=== PATIENT | male | born 1960 | race Caucasian/White ===

== ENCOUNTER 2017-11-09 16:09 | Inpatient (IN) | payer OTHER ==
[~2017-11-09] VITALS: Ht 188 cm; Wt 96.3 kg
[~2017-11-09 16:09] MED LIST: NORCO 325 MG-51 TAB PO
--- NOTE | 2017-11-09 16:45 | ED CARDIAC/CP/PALPITATIONS ---
History of Present Illness General Chief Complaint: Chest Pain Stated Complaint: CHEST PAIN,NUMBNESS IN ARM Source: patient Exam Limitations: no limitations Vital Signs & Intake/Output Vital Signs & Intake/Output Vital Signs Date Time Temp Pulse Resp B/P B/P Pulse O2 O2 Flow FiO2 Mean Ox Delivery Rate 11/09 1646 105 18 165/88 96 Room Air 11/09 1621 98.0 103 15 124/84 95 Room Air Room Air Allergies Coded Allergies: No Known Allergies (11/09/17) Reconcile Medications Acetaminophen/Hydrocodone Bi ([place] 325 MG-5 MG) 1 TAB TAB 1 TAB PO Q6HR PRN PAIN Triage Note: PT TO ED FOR C/C OF CHEST PRESSURE FOR THE LAST WEEK WITH L SIDED ARM NUMBNESS/TINGLING. SYMPTOMS WERE INTERMITTENT AND FOR THE LAST TWO DAYS BECAME CONSTANT. NOTHING MAKES PAIN BETTER OR WORSE. SOME DYSPNEA ON EXERTION AND LIGHTHEADEDNESS. 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 NO ACUTE DISTRESS OR DIAPHORESIS NOTED. Triage Nurses Notes Reviewed? yes Onset: Abrupt Duration: day(s): (1-2), changing over time, continues in ED Timing: single episode today Quality/Severity: moderate, pressure Location: substernal Radiation: arms (left arm ) Activities at Onset: activity Prior Chest Pain/Card Workup: no prior chest pain, no prior cardiac workup Modifying Factors: Improves With: rest. Worsens With: exercise. Nitro Today/Relief: 0.4 mg x 1, provided by ED, mild relief Aspirin Today: 325 mg x 1, provided at home Associated Symptoms: shortness of breath HPI: 57-year-old male past medical history of hypertension presents for evaluation of chest pain shortness of breath. Patient states over the past several days he has been having exertional chest pain.. Patient states that today he was on his yard moving heavy branches when he suddenly got the pain worse and became constant. The pain is located in the left side of his chest described as pressure radiates in the left arm. The pain improves with rest does not go away completely. He reports associated shortness of breath no nausea vomiting once or chills. No recent surgeries or recent trauma. He does report significant family history of heart disease in his older brother and younger brother. 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 Patient states that he took [address] (Carlos Manuel Roberson) Past History Travel History Traveled to [place] past 21 day No Medical History Any Pertinent Medical History? 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 No (Carlos Manuel Roberson) Review of Systems Review of Systems Constitutional: Reports: no symptoms. EENTM: Reports: no symptoms. Respiratory: Reports: see HPI, short of breath. Cardiovascular: Reports: see HPI, chest pain. GI: Reports: no symptoms. Genitourinary: Reports: no symptoms. Musculoskeletal: Reports: no symptoms. Skin: Reports: no symptoms. Neurological/Psychological: Reports: no symptoms. Hematologic/Endocrine: Reports: no symptoms. Immunologic/Allergic: Reports: no symptoms. All Other Systems: Reviewed and Negative (Carlos Manuel Roberson) Physical Exam Physical Exam General Appearance: well developed/nourished, no apparent distress, alert, awake Head: atraumatic, normal appearance Eyes: Bilateral: normal appearance, PERRL, EOMI. Ears, Nose, Throat: normal pharynx, normal ENT inspection, hearing grossly normal Neck: normal inspection, supple, full range of motion, no JVD Respiratory: normal breath sounds, chest non-tender, no respiratory distress, lungs clear Cardiovascular: normal peripheral pulses, tachycardia (rate 106) Peripheral Pulses: 2+ radial (R), 2+ radial (L) Gastrointestinal: soft, non-tender Back: normal inspection, normal range of motion, no vertebral tenderness Extremities: normal inspection, normal capillary refill, normal range of motion, no edema Neurologic/Psych: no motor/sensory deficits, awake, alert, oriented x 3, normal gait Skin: intact, normal color, warm/dry Lymphatic: no anterior cervical nida Core Measures ACS in differential dx? Yes CVA/TIA Diagnosis No Sepsis Present: No Sepsis Focused Exam Completed? No (Carlos Manuel Roberson) Progress Differential Diagnosis: AMI, aortic dissection, atrial fibrillation, costochondritis, musculoskeletal pain, myocarditis, pancreatitis, pericarditis, pneumonia, pneumothorax, pulmonary embolism, PUD/GERD, PVCs/PACs, rib fracture, unstable angina Plan of Care: Orders Procedure Date/time Status Patient Data 11/09 181 Active Admit to inpatient 11/09 181 Active Add-on Test (ER Only) 11/09 1739 Active Add-on Test (ER Only) 11/09 1639 Active TSH REFLEX 11/09 1633 Complete PARTIAL THROMBOPLASTIN TIME 11/09 1633 Complete PROTHROMBIN TIME 11/09 1633 Complete MAGNESIUM 11/09 1633 Complete B-TYPE NATRIURETIC PEP (BNP) 11/09 1633 Complete URINE DRUG SCREEN FOR ER ONLY 11/09 1624 Active URINALYSIS 11/09 1624 Active D-DIMER 11/09 1623 Complete TROPONIN LEVEL 11/09 1620 Complete COMPREHENSIVE METABOLIC PANEL 11/09 1620 Complete CBC WITHOUT DIFFERENTIAL 11/09 1620 Complete EKG 11/09 1611 Active Current Medications Sig/Scarlett Start time Last Medication Dose Stop Time Status Admin Clopidogrel Bisulfate 600 MG ONCE ONE 11/09 1815 AC (Plavix) 11/09 181 Nitroglycerin 1 GM Q6 11/09 1806 UNVr (Nitro-Bid) Heparin Sodium 25,000 UNIT Q24H 11/09 174 UNVr (Porcine) (Heparin) Sodium Chloride 500 ML Metoprolol Tartrate 5 MG ONCE ONE 11/09 174 CANr (Lopressor) 11/09 174 Nitroglycerin 0.4 MG Q 5 MINUTES X 3 DO.. 11/09 174 UNVr 11/09 (Nitrostat) 1747 Laboratory Tests 11/09/17 1633: Magnesium Cancelled, TSH &T3 &Free T4 Intrp Cancelled 11/09/17 1633: Anion Gap 9, Estimated GFR > 60, BUN/Creatinine Ratio 12.0, Glucose 109 H, Calcium 9.1, Magnesium 1.8, Total Bilirubin 0.5, AST 29, ALT 34, Alkaline Phosphatase 72, Troponin I 2.31 *H, Len-N-Wpbkyzpvxri Pept 2690 H, Total Protein 6.2 L, Albumin 3.6, Globulin 2.6, Albumin/Globulin Ratio 1.4, TSH &T3 & Free T4 Intrp 2.180, PT 11.5, INR 1.05, APTT 30, D-Dimer High Sensitivty < 200, CBC w Diff NO MAN DIFF REQ, RBC 4.42 L, MCV 91.9, MCH 31.4 H, MCHC 34.2, RDW 12.2, MPV 7.7, Gran % 65.1, Lymphocytes % 22.9, Monocytes % 11.4 H, Eosinophils % 0.3, Basophils % 0.3, Absolute Granulocytes 5.0, Absolute Lymphocytes 1.8, Absolute Monocytes 0.9 H, Absolute Eosinophils 0, Absolute Basophils 0 Patient seen and evaluated. His history is concerning for acute coronary syndrome. He has diffuse T-wave inversions in the chest leads. He received aspirin on the way here. He is slightly tachycardic to 106. He otherwise appears well. No respiratory distress. Blood work shows an elevated troponin of 2.3. Negative d-dimer. Patient was medicated with IV heparin, Plavix, nitroglycerin and metoprolol. He states that he had mild improvement in his pain after nitroglycerin. She'll be admitted to the ICU under Dr. Hudson's service. Case discussed with Dr. Roman HE agrees. dR Roman SPOKE WITH DR HUDSON. Patient received 325 of aspirin in route to the hospital. Diagnostic Imaging: Viewed by Me: Radiology Read. Discussed w/RAD: Radiology Read. Radiology Impression: PATIENT: JANIE ORTIZ PRESENT AGE: 57 PATIENT ACCOUNT NO: [id number] : 60 LOCATION: [facility] ORDERING PHYSICIAN: Carlos Manuel ZIEGLER SERVICE DATE: 11/09/17 EXAM TYPE: RAD - XRY- PORTABLE CHEST XRAY EXAMINATION: XR PORTABLE CHEST CLINICAL INFORMATION: Chest pain, shortness of breath. COMPARISON: None TECHNIQUE: Portable upright AP view of the chest was obtained. FINDINGS: The lungs are clear and the vascularity is unremarkable. There is no vascular congestion, pneumothorax, airspace consolidation, or visible effusion. Heart is within normal size for portable AP view. The hilar and mediastinal contours and visualized bony structures are unremarkable. IMPRESSION: Lungs clear. DICTATED BY: Teodoro Lamb MD DATE/ TIME DICTATED:11/09/171717 MANAGER MED SURG:LORENZO DATE/TIME TRANSCRIBED: 11/09/171717 CONFIDENTIAL, DO NOT COPY WITHOUT APPROPRIATE AUTHORIZATION. < Electronically signed in Other Vendor System> SIGNED BY: Teodoro Lamb MD 03/10/18 1723 Initial ED EKG: SINUS TACHYCARDIA, ANTERIOR INFARCT AGE INDETERMINATE, t-WAVE INVERSIONS IN v2 v3 v4 v5, RATE 112 (Carlos Manuel Roberson) Departure Departure Disposition: STILL A PATIENT Condition: Stable Clinical Impression Primary Impression: NSTEMI (non-ST elevated myocardial infarction) Referrals: Stanley HILL,Surjit Patel (PCP/Family) Departure Forms: Customer Survey General Discharge Information Admission Note Spoke With: Neftali HILL PHD,Carter Tejeda Documentation of Exam: Documentation of any treatments & extenuating circumstances including Concerns Regarding Discharge (functional status, medication knowledge or non-compliance, living conditions, etc.) that warrant an admission rather than observation: [IV heparin, cardiology consult, telemetry, serial troponins, serial EKGs] (Carlos Manuel Roberson) PA/LINING MECHANIC Co-Sign Statement Statement: ED Attending supervision documentation- [X] I saw and evaluated the patient. I have also reviewed all the pertinent lab results and diagnostic results. I agree with the findings and the plan of care as documented in the PA's/LINING MECHANIC's documentation. [X] I have reviewed the ED Record and agree with the PA's/LINING MECHANIC's documentation. [] Additions or exceptions (if any) to the PAs/LINING MECHANIC's note and plan are summarized below: [Patient presents with exertional chest pain that has been having over the past few days however today it did not go away entirely. Patient states did decrease in intensity but he still has the pain. His EKG shows lateral T-wave inversions with no old EKG is compared to. Patient does have history of hypertension but he self DC'd his medications a few years ago. His initial troponin was 2.31. Patient took an aspirin prior to arrival. Patient has been given IV heparin, by mouth metoprolol, nitroglycerin, Nitropaste, Plavix. Patient will be admitted to the ICU in anticipation of going to the Giving Officer tomorrow. Case was discussed with Dr. Hudson.] (Bertin HILL,Lg Falk) Critical Care Note Critical Care Note Critical Care Time: 30-74 min (Carlos Manuel Roberson)
[2017-11-09 17:09] LABS: ABSOLUTE BASOPHIL COUNT 0 /CUMM (0.0-0.2); ABSOLUTE EOSINOPHIL COUNT 0 /CUMM (0.0-0.7); ABSOLUTE LYMPH COUNT 1.8 /CUMM (1.2-3.4); ABSOLUTE MONOCYTE COUNT 0.9 /CUMM (0.10-0.60); BASOPHIL % 0.3 % (0.0-2.0); EOSINOPHIL % 0.3 % (0-5); GRANULOCYTE % 65.1 % (42.2-75.2); HEMATOCRIT 40.6 % (42-52); MEAN CORPUSCULAR HGB 31.4 PG (27.0-31.0); MEAN CORPUSCULAR HGB CONC 34.2 G/DL (33.0-37.0); MEAN CORPUSCULAR VOLUME 91.9 FL (80.0-94.0); MEAN PLATELET VOLUME 7.7 FL (7.4-10.4); PLATELET COUNT 314 /CUMM (130-400); RBC DISTRIBUTION WIDTH 12.2 % (11.5-14.5); RED BLOOD CELL CT 4.42 /CUMM (4.70-6.10); WHITE BLOOD CELL COUNT 7.7 /CUMM (4.8-10.8)
--- NOTE | 2017-11-09 17:23 | RADIOLOGY REPORT ---
EXAMINATION: XR PORTABLE CHEST CLINICAL INFORMATION: Chest pain, shortness of breath. COMPARISON: None TECHNIQUE: Portable upright AP view of the chest was obtained. FINDINGS: The lungs are clear and the vascularity is unremarkable. There is no vascular congestion, pneumothorax, airspace consolidation, or visible effusion. Heart is within normal size for portable AP view. The hilar and mediastinal contours and visualized bony structures are unremarkable. IMPRESSION: Lungs clear.
[2017-11-09 17:51] LABS: PT 11.5 SEC (9.4-12.5); PTT 30 SEC (25-37)
--- NOTE | 2017-11-09 18:21 | History & Physical ---
General Information and HPI MD Statement: I have seen and personally examined JANIE ORTIZ and documented this H&P. The patient is a 57 year old M who presented with a patient stated chief complaint of chest pain Source of Information: patient, family Exam Limitations: no limitations History of Present Illness: 57-year-old gentleman former smoker, significant ETOH use, past medical history significant for hypertension hyperlipidemia, on medications that were stopped about 2 months ago by the patient himself, inguinal hernia surgery, heartburn Comes in for evaluation of chest pain of 2-3 days duration. His chest pain which he describes as "pressure like" has been intermittent since the past few days, localized to left upper chest, with some radiation to his left upper arm. Associated with some mild shortness of breath and lightheadedness. Apparently patient was cleaning out branches with his son earlier today when his chest pain started and continued without relief. On interview stated that his pain had improved after administration of nitrostat. Denies nausea, diaphoresis, palpitations, fever, chills or bowel or bladder symptoms. Endorses severe ongoing stress since the past few months. Allergies/Medications Allergies: Coded Allergies: No Known Allergies (11/09/17) Home Med list Aspirin (Aspirin*) 325 MG TABLET 325 MG PO DAILY Heart Atorvastatin Calcium 40 MG TABLET 40 MG PO 1700 Heart Clopidogrel Bisulfate (Plavix) 75 MG TABLET 75 MG PO DAILY Heart Heparin Sod,Porcine/0.9 % NaCl (Heparin-Ns 25,000 Units/250 Ml) 25,000 UNIT/250 ML (100 UNIT/ML) IV.SOLN 500 ML IV Q24 ACS Metoprolol Tartrate 25 MG TABLET 25 MG PO DAILY Heart Nitroglycerin (Nitrostat) 0.4 MG TAB.SUBL 0.4 MG SL [id number] PRN CHEST PAIN Nitroglycerin (Nitro-Bid) 2 % OINT...G. 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 Home Who Do You Live With? spouse Smoking Status: Light Tobacco Smoker ETOH Use: occasional use Illicit Drug Use: denies illicit drug use Functional Ability ADLs Independent: dressing, eating, toileting, bathing. Ambulation: independent IADLs Independent: shopping, housework, finances, food prep, telephone, transportation , medication admin. Review of Systems Review of Systems Constitutional: Denies: chills, diaphoresis, fever, malaise, weakness, unexplained weight loss. Cardiovascular: Reports: chest pain. Denies: edema, orthopena, palpitations, peripheral edema, syncope. Respiratory: Denies: cough, hemoptysis, orthopnea, short of breath, sputum production, stridor, wheezing. GI: Denies: abdominal pain, bloating, constipation, diarrhea, distention, bowel incontinence, melena, nausea, bloody stool, changes in stool, vomiting, steatorrhea. Genitourinary: Denies: discharge, dysuria, frequency, hematuria, hesitation, nocturia, pain, urgency. Exam & Diagnostic Data Last 24 Hrs of Vital Signs/I&O Vital Signs Date Time Temp Pulse Resp B/P B/P Pulse O2 O2 Flow FiO2 Mean Ox Delivery Rate 11/09 1646 105 18 165/88 96 Room Air 11/09 1621 98.0 103 15 124/84 95 Room Air Room Air Physical Exam General Appearance Alert, Oriented X3, Cooperative Skin No Significant Lesion HEENT Atraumatic, PERRLA, EOMI, Mucous Membr. moist/pink Neck Supple, No JVD, No thryomegaly Lymphatic Cervical nl Cardiovascular Regular Rate, Normal S1, Normal S2, No Murmurs Lungs Clear to Auscultation, Normal Air Movement Abdomen Normal Bowel Sounds, Soft, mild tenderness to palpation in left side Extremities No Edema Last 24 Hrs of Labs/Kayden: Laboratory Tests 11/09/17 1633: Magnesium Cancelled, TSH &T3 &Free T4 Intrp Cancelled 11/09/17 1633: Anion Gap 9, Estimated GFR > 60, BUN/Creatinine Ratio 12.0, Glucose 109 H, Calcium 9.1, Magnesium 1.8, Total Bilirubin 0.5, AST 29, ALT 34, Alkaline Phosphatase 72, Troponin I 2.31 *H, Dcy-T-Tlrvpfsqsmi Pept 2690 H, Total Protein 6.2 L, Albumin 3.6, Globulin 2.6, Albumin/Globulin Ratio 1.4, TSH &T3 & Free T4 Intrp 2.180, PT 11.5, INR 1.05, APTT 30, D-Dimer High Sensitivty < 200, CBC w Diff NO MAN DIFF REQ, RBC 4.42 L, MCV 91.9, MCH 31.4 H, MCHC 34.2, RDW 12.2, MPV 7.7, Gran % 65.1, Lymphocytes % 22.9, Monocytes % 11.4 H, Eosinophils % 0.3, Basophils % 0.3, Absolute Granulocytes 5.0, Absolute Lymphocytes 1.8, Absolute Monocytes 0.9 H, Absolute Eosinophils 0, Absolute Basophils 0 Diagnostic Data EKG Results NSR, HR 112, Qtc 464 Twave inversion in V4-V6 ? qwaves in V3 CXR Results FINDINGS: The lungs are clear and the vascularity is unremarkable. There is no vascular congestion, pneumothorax, airspace consolidation, or visible effusion. Heart is within normal size for portable AP view. The hilar and mediastinal contours and visualized bony structures are unremarkable. IMPRESSION: Lungs clear. Assessment/Plan Assessment: 57-year-old gentleman former smoker, significant ETOH use, past medical history significant for hypertension hyperlipidemia, on medications that were stopped about 2 months ago by the patient himself, inguinal hernia surgery, heartburn Comes in for evaluation of chest pain of 2-3 days duration. Took 325 of ASA at home. Vitals on admission temperature 90.8, heart rate 13, respiratory rate 15, blood pressure 124/84 95% on room air labs: WBC 7.7, hemoglobin 13.9, hematocrit 40.6, normal coag panel negative d- dimer, sodium 139, potassium 3.9, chloride 104, mag 1.8, troponin 2.31, proBNP 2690 CXR shows no abnormalities NSR, HR 112, Qtc 464 Twave inversion in V4-V6 ? qwaves in V3, no previous EKG to compare to. assessment and plan: NSTEMI In ED was started on IV heparin with bolus, Metoprolol, Plavix loading dose and nitro bid ointment. admit to ICU, vitals per protocol trend trop and EKG Echocardiogram look for wall motion abnormalities and assess valves keep NPO for now in the event of urgent cath Will continue with Metoprolol, ASA and plavix and will start high intensity statin f/up TFT, lipid panel, HA1c dvt ppx IV heparin Full code As Ranked By This Provider Problem List: 1. NSTEMI (non-ST elevated myocardial infarction) Core Measures/Misc (05/19) Acute Coronary Syndrome ACS Diagnosis: Yes Congestive Heart Failure Congestive Heart Failure Diagnosis No Cerebrovascular Accident CVA/TIA Diagnosis: No VTE (View Protocol) VTE Risk Factors Smoker No Mechanical VTE Prophylaxis d/t N/A MechProphylax Ordered No VTE Pharm Prophylaxis d/t NA PharmProphylax ordered Sepsis (View protocol) Sepsis Present: No
[2017-11-09] MEDS ORDERED: ECHINACEA400 M1 PO (19:47)
[2017-11-09] MEDS ORDERED: VITAMIN B-121000 MC3 PO (19:47)
[2017-11-09] MEDS ORDERED: VITAMIN D31000 UNI1 PO (19:47)
[2017-11-09] MEDS ORDERED: ALLOPURINOL100 M1 PO (19:49)
[2017-11-09] MEDS ORDERED: VALSARTAN-HCTZ1 EAC4 PO (19:49)
[2017-11-09] MEDS ORDERED: ATORVASTATIN CA40 M1 PO (19:50)
--- NOTE | 2017-11-09 21:16 | Cons- Cardiology ---
General Information and HPI Consulting Request Date of Consult: 11/09/17 Requested By: Neftali HILL PHD,Carter Tejeda History of Present Illness: This patient is a 57 year old male with history of hypertension, dyslipidemia, tobacco abuse and a strong family history of premature coronary artery disease. He also has a history of presumed GERD that he has noted for an extended period of time. About three days ago this patient noted the onset of intermittent chest pain. This discomfort is described as a severe pressure radiating toward his inner left arm associated with mild shortness of breath and lightheadedness. He denies nausea or diaphoresis or palpitations. The patient presented to the ER after his discomfort became worse today while engaged in some yard work. It should be noted that this patient stopped taking his medications for hypertension and hyperlipidemia. In the ER the patient had an ECG that showed anterior Q waves with precordial T wave inversions and positive cardiac enzymes. Allergies/Medications Allergies: Coded Allergies: No Known Allergies (11/09/17) Home Med List: Allopurinol (Unknown Strength) TABLET (Unknown Dose) PO DAILY GOUT (Reported) Atorvastatin Calcium (Unknown Strength) TABLET (Unknown Dose) PO DAILY CHOLESTEROL (Reported) Cholecalciferol (Vitamin D3) (Vitamin D3) (Unknown Strength) CAPSULE (Unknown Dose) PO DAILY SUPPLEMENT (Reported) Cyanocobalamin (Vitamin B-12) (Unknown Strength) TABLET (Unknown Dose) PO DAILY SUPPLEMENT (Reported) Echinacea (Unknown Strength) CAPSULE (Unknown Dose) PO DAILY SUPPLEMENT ( Reported) Valsartan/Hydrochlorothiazide (Valsartan-Hctz 320-12.5 MG Tab) (Unknown Strength ) TABLET (Unknown Dose) PO DAILY BP (Reported) Review of Systems Review of Systems: A review of systems is unremarkable. 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 brother: premature CAD Psychosocial History Where Do You Live? Home Who Do You Live With? spouse Smoking Status: Light Tobacco Smoker ETOH Use: occasional use Illicit Drug Use: denies illicit drug use Functional Ability ADLs Independent: dressing, eating, toileting, bathing. Ambulation: independent IADLs Independent: shopping, housework, finances, food prep, telephone, transportation , medication admin. Exam & Diagnostic Data Vital Signs and I&O Vital Signs Date Time Temp Pulse Resp B/P B/P Pulse O2 O2 Flow FiO2 Mean Ox Delivery Rate 11/09 1646 105 18 165/88 96 Room Air 11/09 1621 98.0 103 15 124/84 95 Room Air Room Air Physical Exam: General: WD/WN male in NAD; alert and oriented x 3 HEENT: NC/AT, PERRL, EOMI Neck: no JVD, no carotid bruit Heart: RRR w/o murmur Lungs: clear bilaterally Abdomen: soft, NT, +ve bowel sounds Extremities: no edema Assessment/Plan Assessment/Plan * This patient is ruling in for an HI. He appears to have had a late presentation and has precordial Q waves. We will begin full anticoagulation with aspirin 325mg daily, Plavix 75mg daily after a 300mg loading dose and IV heparin. Begin NTG paste 1 inch Q 6 hours. Begin Lipitor 80mg daily and Metoprolol 25mg BID. Aim for a heart rate of 55bpm with beta blockade if blood pressure allows. O2 2L by NC. * Follow cardiac enzymes until they peak. * obtain an echocardiogam. * Will have a low threshold for cardiac catheterization if recurrent chest pain. Consult Acknowledgment - Thank you for your consult request.
[2017-11-10 03:23] LABS: PTT 41 SEC (25-37)
[2017-11-10 08:03] LABS: ABSOLUTE BASOPHIL COUNT 0 /CUMM (0.0-0.2); ABSOLUTE EOSINOPHIL COUNT 0 /CUMM (0.0-0.7); ABSOLUTE GRANULOCYTE CT 3.3 /CUMM (1.4-6.5); ABSOLUTE MONOCYTE COUNT 0.7 /CUMM (0.10-0.60); BASOPHIL % 0.4 % (0.0-2.0); EOSINOPHIL % 0.6 % (0-5); GRANULOCYTE % 54.6 % (42.2-75.2); HEMATOCRIT 40.6 % (42-52); MEAN CORPUSCULAR HGB 31.6 PG (27.0-31.0); MEAN CORPUSCULAR HGB CONC 34.2 G/DL (33.0-37.0); MEAN CORPUSCULAR VOLUME 92.3 FL (80.0-94.0); MEAN PLATELET VOLUME 7.4 FL (7.4-10.4); PLATELET COUNT 310 /CUMM (130-400); RBC DISTRIBUTION WIDTH 12.4 % (11.5-14.5); WHITE BLOOD CELL COUNT 6.1 /CUMM (4.8-10.8)
--- NOTE | 2017-11-10 09:09 | PN- Cardiology ---
Subjective Subjective: * Chest discomfort is resolved. * sinus rhythm * troponin is 2.89 Objective Vital Signs and I&Os Vital Signs Date Time Temp Pulse Resp B/P B/P Pulse O2 O2 Flow FiO2 Mean Ox Delivery Rate 11/10 0739 84 16 123/66 94 Nasal 2.0L Cannula 11/10 0502 84 16 144/82 94 Nasal 2.0L Cannula 11/10 0304 86 16 132/80 94 Nasal 2.0L Cannula 11/10 0054 84 16 123/66 94 Nasal 2.0L Cannula 11/09 2232 98.3 83 18 125/77 97 Nasal 2.0L Cannula 11/09 1830 144/82 11/09 1646 105 18 165/88 96 Room Air 11/09 1621 98.0 103 15 124/84 95 Room Air Room Air Intake & Output 11/10 1600 11/10 0800 11/10 0000 11/09 1600 11/09 0800 11/09 0000 Intake Total Output Total Balance Patient 217 lb Weight Weight Reported by Patient Measurement Method Physical Exam: General: WD/WN male in NAD; alert and oriented x 3 HEENT: NC/AT, PERRL, EOMI Neck: no JVD, no carotid bruit Heart: RRR w/o murmur Lungs: clear bilaterally Abdomen: soft, NT, +ve bowel sounds Extremities: no edema Assessment/Plan Assessment/Plan * This patient is ruling in for an MA. He appears to have had a late presentation and has precordial Q waves. We will continue full anticoagulation with aspirin 325mg daily, Plavix 75mg daily and IV heparin. Continue NTG paste 1 inch Q 6 hours, Lipitor 80mg daily and Metoprolol 25mg BID. Aim for a heart rate of 55bpm with beta blockade if blood pressure allows. O2 2L by NC. * Follow cardiac enzymes until they peak. * obtain an echocardiogam. * Will plan on cardiac cath tomorrow but will have a low threshold for emergent cath if recurrent chest pain. Continue telemetry? Yes
[2017-11-10 11:30] VITALS: BP 146/80
[2017-11-10 13:15] LABS: PTT 60 SEC (25-37)
--- NOTE | 2017-11-10 13:39 | PN- Resident CRCU ---
Subjective HPI/CRCU Issues: NSTEMI 24 Hour Events: Currently chest pain free. No shortness of breath, palpitations or lightheadedness. EKG without any ST-T changes, does have precordial Q waves. Troponins - 2.31 > 2.89 > 2.28. Afebrile. HR - 82-95. RR - 18. BP - 146/80. 96 on 2L. Objective Vital Signs & I&O Last 8 Hrs of Vitals and I&O: Afebrile. HR - 82-95. RR - 18. BP - 146/80. 96 on 2L. Exam General Appearance: well developed/nourished, no apparent distress Head: atraumatic Neck: normal inspection, supple Respiratory: normal breath sounds, chest non-tender Cardiovascular: regular rate/rhythm Gastrointestinal: normal bowel sounds Extremities: normal inspection, normal capillary refill Current Medications: Current Medications Sig/Scarlett Start time Last Medication Dose Route Stop Time Status Admin Acetaminophen 650 MG ONCE ONE 11/09 1800 DC 11/09 PO 11/09 1801 1830 Acetaminophen 0 .STK-MED ONE 11/09 175 DC PO Aspirin 325 MG DAILY 11/10 1000 AC 11/10 PO 0959 Aspirin 0 .STK-MED ONE 11/10 0945 DC PO Atorvastatin Calcium 40 MG 1700 11/10 1700 AC PO Clopidogrel Bisulfate 75 MG DAILY 11/10 1000 AC 11/10 PO 0959 Clopidogrel Bisulfate 0 .STK-MED ONE 11/10 0945 DC PO Clopidogrel Bisulfate 0 .STK-MED ONE 11/10 2011 DC PO Clopidogrel Bisulfate 600 MG ONCE ONE 11/09 181 DC 11/09 PO 11/09 Heparin Sodium 0 .STK-MED ONE 11/10 0546 DC (Porcine) .ROUTE Heparin Sodium 0 .STK-MED ONE 11/09 175 DC (Porcine) .ROUTE Heparin Sodium 4,000 UNIT ONCE ONE 11/09 1745 DC 11/09 (Porcine) IV 11/09 174 1830 Heparin Sodium 25,000 UNIT Q24H 11/09 174 AC 11/09 (Porcine) IV 1844 Sodium Chloride 500 ML Metoprolol Tartrate 25 MG DAILY 11/10 1000 AC 11/10 PO 0959 Metoprolol Tartrate 0 .STK-MED ONE 11/10 0945 DC PO Metoprolol Tartrate 0 .STK-MED ONE 11/09 1758 DC PO Metoprolol Tartrate 5 MG ONCE ONE 11/09 174 CAN IV 11/09 174 Metoprolol Tartrate 25 MG ONCE ONE 11/09 1745 DC 11/09 PO 11/09 1746 1830 Nitroglycerin 1 GM Q6 PRN 11/10 0810 AC TOP Nitroglycerin 1 GM Q6 11/09 1806 DC TOP Nitroglycerin 0 .STK-MED ONE 11/09 174 DC SL Nitroglycerin 0.4 MG Q 5 MINUTES X 3 DO.. 11/09 174 AC 11/09 SL 1747 Potassium Chloride 20 MEQ .[id number] 11/09 1915 AC 11/10 Dextrose/Sodium 1,000 ML IV 0822 Chloride Impression/Plan Impression/Problem List Impression: 57-year-old gentleman with history of hypertension, hyperlipidemia, reported infrequent cigar use and a very strong family history of premature coronary artery disease, with ongoing episodes of intermittent chest pain over the last 5 days described as pressure-like pain intermittent left arm numbness, found to have precordial Q waves and a positive troponin, currently in ICU ruling in for [place], on IV heparin, plan for Cardiac catheterization for coronary evaluation. Continue full anticoagulation with aspirin, Plavix and IV heparin. Continue oxygen support. Continue nitroglycerin. High-dose statin. Beta figueroa. Echocardiogram pending. Nothing by mouth at midnight for cardiac catheterization in a.m. Full code. Heart healthy diet. DVT prophylaxis addressed by IV heparin. Problem List: 1. NSTEMI (non-ST elevated myocardial infarction) Pain Ratin Tomorrow's Labs & Rationales: On IV Heparin Plan DVT/Prophylaxis: pharmacological
[2017-11-10] MEDS ORDERED: ATORVASTATIN CA40 M1 PO (15:22)
[2017-11-10] MEDS ORDERED: PLAVIX75 M1 PO (15:22)
[2017-11-10] MEDS ORDERED: ASPIRIN325 M2 PO (15:23)
[2017-11-10] MEDS ORDERED: HEPARIN-NS25000 UNIT IV (15:23)
[2017-11-10] MEDS ORDERED: NITROSTAT0.4 M1 SL (15:23)
[2017-11-10] MEDS ORDERED: METOPROLOL TART25 M1 PO (15:23)
[2017-11-10] MEDS ORDERED: NITRO-BID1 GM TOP (15:23)
--- NOTE | 2017-11-10 15:25 | Patient Discharge Instructions ---
Discharge Instructions General Discharge Information You were seen/treated for: Heart attack Watch for these problems: Worsening chest pain Worsening lightheadedness Worsening palpitations Numbness tingling in extremities Special Instructions: Discharge to another hospital for cardiac catheterization. Diet Continue normal diet: No Recommended Diet: nothing by mouth Activity Full Activity/No Limits: No Acute Coronary Syndrome Inclusion Criteria At DC or during hospital stay patient has or had the following: ACS DIAGNOSIS Yes Discharge Core Measures Meds if any: Prescribed or Continued at Discharge DENNIS/ARB if EF <40% No Aspirin Yes Beta-Radha Yes Statin Yes Meds if any: NOT Prescribed or Continued at Discharge Congestive Heart Failure Inclusion Criteria At DC or during hospital stay patient has or had the following: CHF DIAGNOSIS No Discharge Core Measures Meds if any: Prescribed or Continued at Discharge Meds if any: NOT Prescribed or Continued at Discharge Cerebrovascular accident Inclusion Criteria At DC or during hospital stay patient has or had the following: CVA/TIA Diagnosis No Discharge Core Measures Meds if any: Prescribed or Continued at Discharge Meds if any: NOT Prescribed or Continued at Discharge Venous thromboembolism Inclusion Criteria VTE Diagnosis No VTE Type NONE VTE Confirmed by (Test) NONE Discharge Core Measures - Per Current guidelines, there needs to be overlap - treatment for the first 5 days of Warfarin therapy. - If discharged on Warfarin prior to 5 days of - overlap therapy, the patient will need to be - assessed for post discharge needs including - *Post discharge parental anticoagulation - *Warfarin and/or parental anticoagulation education - *Follow up date to check INR post discharge At least 5 days overlap therapy as Inpatient No Meds if any: Prescribed or Continued at Discharge Note: Overlap Therapy is Warfarin and Anticoagulant Meds if any: NOT Prescribed or Continued at Discharge
--- NOTE | 2017-11-10 15:34 | Discharge Summary ---
Visit Information Visit Dates Admission Date: 11/09/17 Discharge Date: 11/11/2017 Hospital Course Course Attending Physician: Neftali HILL PHD,Carter Tejeda Primary Care Physician: Stanley HILL,[employer] Course: 57-year-old gentleman with history of hypertension, hyperlipidemia, tobacco use, strong family history of coronary artery disease presented [facility] ED on 11/09/2017 with 3 day history of intermittent chest pain, which he described as a severe pressure radiating to his inner left arm associated with mild shortness of breath and lightheadedness. He presented to the ED with worsening of this discomfort after engaging in yardwork post snow storm. Prior to this presentation, patient had stopped taking his antihypertensives and antihyperlipidemics. In the ED: Vitals, 98, pulse 103-2105, respirations 15-18, blood pressure 165/88 and saturations 96 on room air. Pertinent labs: H&H 13.9/40.6. Normal chem panel. Troponin 2.31. ProBNP 2690. Chest x-ray unremarkable. The patient was does admitted to inpatient/ICU after ruling in for an VT. He did have precordial Q waves, which likely represented a late presentation. He was started on full anticoagulation with aspirin, Plavix and IV heparin. Additionally he was started on high-dose statin and a beta figueroa. During his stay, his troponins were 2.31 on presentation, followed by 2.89 and then downtrending to 2.28. An echo was obtained, results of which are pending. Plan is to discharge Eren to another hospital for coronary evaluation via cardiac catheterization. He remains stable for discharge. Allergies: Coded Allergies: No Known Allergies (11/09/17) Disposition Summary Disposition Principal Diagnosis: NSTEMI Additional Diagnosis: Hypertension Discharge Disposition: other general hospital Discharge Instructions General Discharge Information Code Status: Full Code Patient's Diet: NPO for cardiac catheterization Patient's Activity: As tolerated. Follow-Up Instructions/Appts: Close follow-up with business development executive as an outpatient. Follow-up with primary care physician as an outpatient. Smoking cessation. Medications at Discharge Discharge Medications: Stop taking the following medications: Cyanocobalamin (Vitamin B-12) (Unknown Strength) TABLET ORAL DAILY Cholecalciferol (Vitamin D3) (Vitamin D3) (Unknown Strength) CAPSULE ORAL DAILY Echinacea (Echinacea) (Unknown Strength) CAPSULE ORAL DAILY Valsartan/Hydrochlorothiazide (Valsartan-Hctz 320-12.5 MG Tab) (Unknown Strength ) TABLET ORAL DAILY Qty = 30 Allopurinol (Allopurinol) (Unknown Strength) TABLET ORAL DAILY Qty = 30 Atorvastatin Calcium (Atorvastatin Calcium) (Unknown Strength) TABLET ORAL DAILY Qty = 30 Start taking the following new medications: Clopidogrel Bisulfate (Plavix) 75 MG TABLET 75 Milligram ORAL DAILY Days = 30 No Refills Atorvastatin Calcium (Atorvastatin Calcium) 40 MG TABLET 40 Milligram ORAL 5 PM Days = 30 No Refills Nitroglycerin (Nitrostat) 0.4 MG TAB.SUBL 0.4 Milligram SUBLINGUAL [id number] as needed for CHEST PAIN Days = 5 No Refills Nitroglycerin (Nitro-Bid) 2 % OINT...G. 1 Gram On the skin EVERY SIX HOURS as needed for CHEST PAIN Days = 5 No Refills Metoprolol Tartrate (Metoprolol Tartrate) 25 MG TABLET 25 Milligram ORAL DAILY Days = 30 No Refills Aspirin (Aspirin*) 325 MG TABLET 325 Milligram ORAL DAILY Days = 30 No Refills Heparin Sod,Porcine/0.9 % NaCl (Heparin-Ns 25,000 Units/250 Ml) 25,000 UNIT/250 ML (100 UNIT/ML) IV.SOLN 500 Milliliters INTRAVEN EVERY 24 HOURS Days = 2 No Refills Copies To: Stanley HILL,Surjit Lindsay MD PHD,Carter Tejeda Attending MD Review Statement Documenting Attending: Neftali HILL PHD,Carter Tejeda
[2017-11-10 16:00] VITALS: BP 122/60
[2017-11-10 20:51] LABS: PTT 78 SEC (25-37)
[2017-11-10 23:55] VITALS: BP 128/64
[2017-11-11 05:27] LABS: ABSOLUTE BASOPHIL COUNT 0 /CUMM (0.0-0.2); ABSOLUTE EOSINOPHIL COUNT 0 /CUMM (0.0-0.7); ABSOLUTE GRANULOCYTE CT 3.3 /CUMM (1.4-6.5); ABSOLUTE LYMPH COUNT 2.2 /CUMM (1.2-3.4); ABSOLUTE MONOCYTE COUNT 0.6 /CUMM (0.10-0.60); BASOPHIL % 0.5 % (0.0-2.0); EOSINOPHIL % 0.8 % (0-5); HEMATOCRIT 38.6 % (42-52); MEAN CORPUSCULAR HGB 31.5 PG (27.0-31.0); MEAN CORPUSCULAR VOLUME 92.4 FL (80.0-94.0); MEAN PLATELET VOLUME 7.5 FL (7.4-10.4); PLATELET COUNT 282 /CUMM (130-400); RBC DISTRIBUTION WIDTH 12.2 % (11.5-14.5); RED BLOOD CELL CT 4.18 /CUMM (4.70-6.10); WHITE BLOOD CELL COUNT 6.1 /CUMM (4.8-10.8)
--- NOTE | 2017-11-11 07:26 | ECHOCARDIOGRAM REPORT ---
JANIE ORTIZ Age: 57 : 1960 Gender: M Exam Date: 11/10/2017 13:32 Exam Location: [facility] Ht (in): 74 Wt (lb): 217 BSA: 2.28 BP: 114 / 68 Ordering Physician: Melissa Edge MD Referring Physician: Carter Lindsay MD, PhD Technologist: Shayna Barker [facility] Room Number: 103 Indications: MYOCARDIAL ISCHEMIA/HI Rhythm: Sinus Technical Quality: good FINDINGS Left Ventricle Normal left ventricular size, wall thickness and systolic function with moderate mid to distal anteroseptal hypokinesis. Diastolic filling pattern is consistent with impaired LV relaxation. The ejection fraction is visually estimated at 50%. Right Ventricle The right ventricle is normal in size and function. Right Atrium The right atrium is normal in size. Left Atrium The left atrium is mildly enlarged. The interatrial septum is intact. Mitral Valve The mitral valve is normal in structure and function. There is mild mitral regurgitation. Aortic Valve Structurally normal aortic valve without significant sclerosis or stenosis. There is mild aortic regurgitation. Tricuspid Valve The tricuspid valve is normal in structure and function. There is mild tricuspid regurgitation. Pulmonary artery systolic pressure is normal. Pulmonic Valve Structurally normal pulmonic valve. There is no pulmonic regurgitation. Pericardium Normal pericardium with trace effusion. No pleural effusion. Great Vessels Normal aortic root dimension. The aortic arch and great vessels are well seen and are normal. CONCLUSIONS 1. Low normal EF of 50% with mid to distal anterosepal hypokinesis and impaired LV relaxation. 2. Mild left ventricular hypertrophy. 3. Mild left atrial enlargement. 4. Mild mitral regurgitation. 5. Mild tricuspid regurgitation. 6. Mild aortic insufficiency. Carter Lindsay M.D. (Electronically Signed) Final Date: 11 November 2017 07:25 MEASUREMENTS (Male / Female) Normal Values 2D ECHO LV Diastolic Diameter PLAX 5.0 cm 4.2 - 5.9 / 3.9 - 5.3 cm LV Systolic Diameter PLAX 3.1 cm 2.1 - 4.0 cm LV Fractional Shortening PLAX 38.0 % 25 - 46 % LV Ejection Fraction 2D Teich 67.9 % IVS Diastolic Thickness 1.3 cm LVPW Diastolic Thickness 1.3 cm LV Relative Wall Thickness 0.5 RV Internal Dim ED PLAX 3.4 cm 1.9 - 3.8 cm LVOT Diameter 2.0 cm Aortic Root Diameter 3.6 cm LA Systolic Diameter LX 4.1 cm 3.0 - 4.0 / 2.7 - 3.8 cm LA Volume 40.0 cm 18 - 58 / 22 - 52 cm Ascending Aorta Diameter 3.6 cm DOPPLER AV Peak Velocity 111.0 cm/s AV Peak Gradient 4.9 mmHg AV Mean Velocity 81.9 cm/s AV Mean Gradient 3.0 mmHg AV Velocity Time Integral 23.5 cm LVOT Peak Velocity 92.5 cm/s LVOT Peak Gradient 3.4 mmHg LVOT Mean Velocity 63.8 cm/s LVOT Mean Gradient 2.0 mmHg LVOT Velocity Time Integral 16.2 cm LVOT Stroke Volume 50.9 cm AV Area Cont Eq vti 2.2 cm AV Area Cont Eq pk 2.6 cm MV Peak Velocity 84.7 cm/s MV Peak Gradient 2.9 mmHg MV Mean Velocity 45.4 cm/s MV Mean Gradient 1.0 mmHg Mitral E Point Velocity 43.9 cm/s Mitral A Point Velocity 58.7 cm/s Mitral E to A Ratio 0.7 MV PHT Velocity 59.1 cm/s MV Deceleration Kane 198.0 cm/s MV Pressure Half Time 89.5 ms MV Area PHT 2.5 cm MV Deceleration Time 391.0 ms TR Peak Velocity 77.6 cm/s TR Peak Gradient 2.4 mmHg Right Atrial Pressure 5.0 mmHg Pulmonary Artery Systolic Pressu 7.4 mmHg Right Ventricular Systolic Press 7.4 mmHg PV Peak Velocity 101.0 cm/s PV Peak Gradient 4.1 mmHg PV Mean Velocity 65.5 cm/s PV Mean Gradient 2.0 mmHg PV Velocity Time Integral 23.1 cm LV E' Lateral Velocity 4.2 cm/s Mitral E to LV E' Lateral Ratio 10.4 LV E' Septal Velocity 5.0 cm/s Mitral E to LV E' Septal Ratio 8.8
--- NOTE | 2017-11-11 07:52 | PN- Resident CRCU ---
Subjective HPI/CRCU Issues: Patient seen and examined. Offered no complaints. Going to be transferred for cardiac catheterization today. Objective Vital Signs & I&O Last 8 Hrs of Vitals and I&O: Vital Signs Date Time Temp Pulse Resp B/P B/P Pulse O2 O2 Flow FiO2 Mean Ox Delivery Rate 11/11 825 84 117/79 11/10 2355 98.4 92 20 128/64 93 Room Air 11/10 1600 99.4 80 18 122/60 94 Room Air 11/10 1600 94 Room Air Intake & Output 11/11 1600 11/11 0800 11/11 0000 Intake Total 802 1262 Output Total 750 Balance 52 1262 Intake, IV 802 782 Intake, Oral 480 Output, Urine 750 Exam General Appearance: no apparent distress, alert Neck: normal inspection Respiratory: normal breath sounds Cardiovascular: regular rate/rhythm Gastrointestinal: normal bowel sounds, soft Extremities: normal inspection Cranial Nerves: normal hearing, normal speech Current Medications: Current Medications Sig/Scarlett Start time Last Medication Dose Route Stop Time Status Admin Aspirin 325 MG DAILY 11/10 1000 DCD 11/11 PO 0826 Atorvastatin Calcium 40 MG 1700 11/10 1700 DCD 11/10 PO 1757 Clopidogrel Bisulfate 75 MG DAILY 11/10 1000 DCD 11/11 PO 0826 Heparin Sodium 2,900 UNIT ONE ONE 11/10 1400 DC 11/10 (Porcine) IV 11/10 1401 1400 Heparin Sodium 25,000 UNIT Q24H 11/09 174 DCD 11/10 (Porcine) IV 1559 Sodium Chloride 500 ML Metoprolol Tartrate 25 MG DAILY 11/10 1000 DCD 11/11 PO 0826 Nitroglycerin 1 GM Q6 PRN 11/10 0810 DCD TOP Nitroglycerin 0.4 MG Q 5 MINUTES X 3 DO.. 11/09 174 DCD 11/09 SL 1747 Potassium Chloride 20 MEQ .[id number] 11/09 1915 DCD 11/10 Dextrose/Sodium 1,000 ML IV 2208 Chloride Impression/Plan Impression/Problem List Impression: 57-year-old gentleman with history of hypertension, hyperlipidemia, reported infrequent cigar use and a very strong family history of premature coronary artery disease, with ongoing episodes of intermittent chest pain over the last 5 days described as pressure-like pain intermittent left arm numbness, found to have precordial Q waves and a positive troponin, currently in ICU ruling in for [place], on IV heparin, plan for Cardiac catheterization for coronary evaluation. Continue full anticoagulation with aspirin, Plavix and IV heparin. Continue oxygen support. Continue nitroglycerin. High-dose statin. Beta figueroa. Nothing by mouth for cardiac catheterization Echocardiogram 1. Low normal EF of 50% with mid to distal anterosepal hypokinesis and impaired LV relaxation. 2. Mild left ventricular hypertrophy. 3. Mild left atrial enlargement. 4. Mild mitral regurgitation. 5. Mild tricuspid regurgitation. 6. Mild aortic insufficiency. Full code. NPO for now DVT prophylaxis addressed by IV heparin. Problem List: 1. NSTEMI (non-ST elevated myocardial infarction) Pain Ratin Tomorrow's Labs & Rationales: NONE Plan DVT/Prophylaxis: pharmacological Code Status: Full Code
[2017-11-11 08:26] VITALS: BP 117/79
[2017-11-11 09:21] LABS: PTT 86 SEC (25-37)
== END 2017-11-11 12:21 | disposition short-term general hospital (02) | DRG 282 ==
LOC: ERH 16:09 → ERHI 18:12 → ENRESERV 11-10 09:00 → ENTRNSPT 11-10 10:52 → EDTRNSPT 11-10 10:56 → EDTRNSPTSTS 11-10 11:07 → CRI 11-10 11:22 → CMPTRNSPT 11-10 11:47 → CRI 11-11 12:21
PROVIDERS: Internal Medicine; Internal Medicine Hematology & Oncology; Internal Medicine Interventional Cardiology; Physician Assistant Medical
DX: I21.4 Non-ST elevation (NSTEMI) myocardial infarction (principal); E78.5 Hyperlipidemia, unspecified; Z87.891 Personal history of nicotine dependence; F10.10 Alcohol abuse, uncomplicated; Z91.14 Patient's other noncompliance with medication regimen; Z79.82 Long term (current) use of aspirin; Z82.49 Family history of ischemic heart disease and other diseases of the circulatory system
CPT/HCPCS: CCU; ERO; 36415; 71045; 80307; 82436; 93005; 93010; 93306; 99291; J1644; J3490; J7042